=== PATIENT | male | born 1995 | race Hispanic/Latino ===

== ENCOUNTER 2022-03-26 16:47 | Emergency (ER) | payer BC, OTHER, SELFPAY ==
[~2022-03-26] VITALS: Ht 177.8 cm; Wt 104.3 kg
[2022-03-26 16:48] VITALS: BP 133/83
[2022-03-26] MEDS ORDERED: KETOROLAC 15MG/ML VIAL (15MG/ML) IM SCH (17:00)
[2022-03-26] MEDS ORDERED: KETO10TA2 PO (17:50)
== END 2022-03-26 18:06 | disposition home or self-care (01) ==
LOC: EDH 16:47
DX: M25.512 Pain in left shoulder (principal); J45.909 Unspecified asthma, uncomplicated
CPT/HCPCS: 99283; 73030; 96372; J1885